=== PATIENT | male | born 1990 | race Hispanic/Latino ===

== ENCOUNTER 2023-08-23 05:59 | Emergency (ER) | payer OTHER, SELFPAY ==
[2023-08-23 06:01] VITALS: BP 122/79; PULSE 62; RESP 16; TEMP 36.1; O2SAT 100; BMI 23.9
--- NOTE | 2023-08-23 06:09 | RAD_ITS ---
INDICATION: injury EXAMINATION/TECHNIQUE: X-RAY - LEFT XR Hand Min 3 Views COMPARISON: None. FINDINGS: SOFT TISSUES: Soft tissue amputation of the distal third finger. Density lateral and volar to the distal third phalanx likely represents a small fracture fragment. BONES/JOINTS: Displaced tuft fracture of the third finger. No dislocation. No significant degenerative changes. No erosive changes. RAD/Hand Min 3 Views IMPRESSION: Amputation of the distal third finger with associated tuft fracture. Electronically Signed: Willis Killian DO at 6:37 EDT ,
[2023-08-23] MEDS: Diphth,Pertuss(Acell),Tet Vac 0.5 ML Vial IM (06:39)
[2023-08-23] MEDS: Lidocaine 2% (20 ml mdv) 20 ML Vial INFILT (06:40)
--- NOTE | 2023-08-23 07:50 | EDS_ITS ---
HPI History of Present Illness Chief Complaint: Upper Extremity Injury Informant: patient and friend Narrative Narrative: Patient is a [id number] 33-year-old male with no reported significant past medical history. He was at work at roughly 5 in the morning when he got his left third finger stuck between a piece of wood and a machine and this led to a laceration/injury to the third finger. Secondary to the trauma the patient was brought in for evaluation. Patient is unsure of his tetanus status. He denies any history of immunosuppression. He denies any numbness tingling or weakness. PFSH PFSH Medical History unable to obtain Home Medications ?Medication ?Instructions ?Recorded ?Last Taken ?Type amoxicillin 875 mg-potassium 1 tab PO BID 10 days #20 tabs 08/23/23 Unknown Rx clavulanate 125 mg tablet oxycodone-acetaminophen 5 mg-325 1 tab PO Q6H PRN pain 5 days #20 08/23/23 Unknown Rx mg tablet (Percocet) tabs Allergy/AdvReac Type Severity Reaction Status Date / Time No Known Allergies Allergy Verified 08/23/23 06:02 Surgical History unable to obtain Social History Smoking Status: Unknown if ever smoked [facility] ED Constitutional Constitutional ED: Denies chills or fever(s) ENT ENT ED: Denies sore throat Cardiovascular Cardiovascular: Denies chest pain Respiratory/Chest Respiratory/Chest: Denies cough or dyspnea Gastrointestinal Gastrointestinal: Denies abdominal pain, diarrhea, nausea or vomiting Genitourinary Genitourinary ED: Denies dysuria Musculoskeletal Musculoskeletal: Reports other Details: Positive left third finger pain Integumentary Reports other Details: Positive left third finger laceration ; Denies rash Neurologic Neurologic: Denies headache(s), paresthesias or weakness Hematologic/Lymphatic Hematologic/Lymphatic: Denies easy bleeding or easy bruising EXAM Physical Exam Const Vital Signs: 08/23/23 06:01 Temperature 97 F L Temperature Source Temporal Pulse Rate 62 Respiratory Rate 16 Blood Pressure 122/79 H Blood Pressure Mean 93 Pulse Ox 100 Positive well nourished and well developed General Appearance ED: well developed HEENT HEENT Narrative: Normocephalic atraumatic Eyes PERRL and EOMs intact bilaterally Neck full ROM and supple Resp normal respiratory effort and clear to auscultation bilaterally Cardio regular rate and regular rhythm Extremity Extremity Narrative: Left upper extremity is neurovascular intact. Patient has a traumatic amputation to the tip of the left third finger that removes the distal third of the phalanx and nailbed. There is mild ooze of blood with no foreign body. No arterial bleed. No obvious bony protrusion Otherwise exam is normal Neuro oriented x3 and CN's II-XII intact bilaterally Sensorium / Orientation: alert Psych mental status grossly normal Skin Skin Narrative: Traumatic amputation of the left third finger as documented above MDM MDM MDM Narrative Medical decision making narrative: Patient arrived to the ER with stable vitals and had a traumatic injury to his left third finger. With concern for traumatic amputation versus open fracture versus ligamentous or tendon injury and x-ray was obtained. X-ray confirmed amputation. However there is no signs of retained foreign body or ligamentous or tendon injury. The case was discussed with orthopedics on-call Dr. Vijay Gill. He agrees that as there is no protruding bone there is no need to rongeur the bone back and the flap can be closed over top of the remaining section of the finger and patient follow-up on an outpatient basis. The patient's tetanus status was updated he was started on Augmentin for infection prophylaxis. The wound was closed as documented below and he will follow-up on an outpatient basis Patient was given a digital block using 8 mL of 2% lidocaine without epinephrine in digital fashion. Following this the tip of the finger was cleaned with chlorhexidine and hydrogen peroxide. The wound was then copiously irrigated with normal saline. A total of twelve 4-0 Vicryl sutures were placed in simple operative fashion to close the flap over top of the distal finger. After this was performed the wound was covered and Surgicel and a bulky dressing. Patient tolerated the procedure well without complication. Radiography Diagnostic Testing: Clinical Impression(s) from Imaging Studies Hand X-Ray 08/23/23 06:09 IMPRESSION: Amputation of the distal third finger with associated tuft fracture. Electronically Signed: Willis Killian DO at 6:37 EDT , X-ray of the left hand as interpreted by the emergency medicine physician reveal s a amputation to the distal third of the third finger Discharge Plan Triage Chief Complaint: Upper Extremity Injury ED Provider: Charles Gutierrez Dx/Rx/DC Orders Clinical Impression: Amputation of finger of left hand, Open fracture of finger of left hand Instructions: Finger Tip Amputation Open Tx Prescriptions: New oxycodone-acetaminophen [Percocet] 5-325 mg tablet 1 tab PO Q6H PRN (Reason: pain) 5 Days Qty: 20 0RF amoxicillin-pot clavulanate 875-125 mg tablet 1 tab PO BID 10 Days Qty: 20 0RF Primary Care Provider: Care Physician,No Primary Referrals: Main Haddad DO [Med Staff - Active Staff] - Care Physician,No Primary [Primary Care Provider] - Activity Restrictions/Additional Instructions: You need to follow-up with orthopedics regarding your left finger injury as documented in the discharge instructions. The sutures that were placed in the tip of your finger are dissolvable and will dissolve over the next 10 to 14 days. Take the antibiotic as directed to prevent infection and return to the ER should you have any further concerns Print Language: [place]an Disposition Disposition: Home, Self Care Discharge Date/Time: 08/23/23 08:21
[2023-08-23] MEDS: Amox/Clavulanate 875 MG Tablet PO (08:05)
[2023-08-23 08:18] VITALS: BP 110/75; PULSE 68; RESP 18; TEMP 36.6; O2SAT 98
== END 2023-08-23 08:21 | disposition home or self-care (01) ==
PROVIDERS: Emergency Provider Emergency Medicine; Visit Provider Emergency Medicine
DX: S68.123A Partial traumatic metacarpophalangeal amputation of left middle finger, initial encounter (principal); Y99.0 Civilian activity done for income or pay; W31.89XA Contact with other specified machinery, initial encounter; Z23 Encounter for immunization
CPT/HCPCS: 12001; 73130; 90471; 90715; 99282